=== PATIENT | male | born 1965 | race Two or more races ===

== ENCOUNTER 2017-09-20 17:10 | Inpatient (IN) | payer MEDICARE ==
[~2017-09-20] VITALS: Ht 167.6 cm; Wt 91.6 kg
--- NOTE | 2017-09-20 17:30 | NUR ---
PT WAS [facility] FROM HOME FOR PSYCH EVAL. PT IS IN 5150 HOLD DUE TO DANGER TO SELF. PT THINKS THAT PEOPLE ARE AFTER HIM TO KILL HIM. A/OX3, NAD VSS RR EVEN AND UNLABORED. PENDING ER MD RUIZ
[2017-09-20 17:47] LABS: BASOPHILS % (AUTO) 0.4 % (0.0-2.0); EOSINOPHILS % (AUTO) 1.7 % (0.0-6.0); HEMATOCRIT 45 % (39-51); HEMOGLOBIN 14.9 g/dL (13.5-17.5); LYMPHOCYTES # (AUTO) 2.7 /CMM (0.8-4.8); LYMPHOCYTES % (AUTO) 30.3 % (20.0-44.0); MEAN CORPUSCULAR HGB CONC 33 g/dl (31.0-36.0); MEAN CORPUSCULAR VOLUME 99 fL (80-96); MONOCYTES # (AUTO) 0.4 /CMM (0.1-1.30); MONOCYTES % (AUTO) 4.9 % (2.0-12.0); NEUTROPHILS # (AUTO) 5.6 /CMM (1.8-8.9); NEUTROPHILS % (AUTO) 62.7 % (43.0-81.0); PLATELET COUNT (AUTO) 229 /CMM (150-450); RDW COEFFICIENT OF VARIATION 12.9 (11.5-15.0); RED BLOOD CELL COUNT(AUTO) 4.52 MIL/uL (4.5-6.0); WHITE BLOOD COUNT (AUTO) 8.9 K/uL (4.3-11.0)
[2017-09-20 18:26] LABS: CALCIUM, SERUM 8.8 mg/dL (8.5-10.1); CARBON DIOXIDE 30 mmol/L (21-32); CHLORIDE 104 mmol/L (98-107); GLUCOSE 101 mg/dL (74-106); POTASSIUM 3.7 mmol/L (3.5-5.1); SODIUM SERUM 142 mmol/L (136-145); UREA NITROGEN, BLOOD 9 mg/dL (7-18)
[2017-09-20 18:32] LABS: ALANINE AMINOTRANSFERASE 19 U/L (12-78); ALCOHOL, BLOOD < 3 mg/dL (0-0); ALKALINE PHOSPHATASE 46 U/L (46-116); ASPARTATE AMINOTRANSFERASE 14 U/L (15-37); BILIRUBIN,DIRECT 0.1 mg/dL (0.0-0.2); BILIRUBIN,TOTAL 1.2 mg/dL (0.2-1.0); TOTAL PROTEIN, SERUM 7.3 g/dL (6.4-8.2)
[2017-09-20 19:30] LABS: APPEARANCE,URINE CLEAR (CLEAR); BILIRUBIN,URINE NEGATIVE (NEGATIVE); BLOOD, URINE NEGATIVE Ery/uL (NEGATIVE); COLOR,URINE YELLOW (YELLOW); KETONES,URINE TRACE (NEGATIVE); LEUKOCYTE ESTERASE ,URINE NEGATIVE (NEGATIVE); NITRITE, URINE NEGATIVE (NEGATIVE); PROTEIN,URINE NEGATIVE (NEGATIVE); UGLUCOSE NEGATIVE (NEGATIVE); UROBILINOGEN,URINE 0.2 EU/dL (0.2)
[2017-09-20 19:31] LABS: ACETAMINOPHEN 0 ug/ml (10-30); SALICYLATE 0.2 mg/dL (2.8-20.0)
[2017-09-20 19:38] LABS: BACTERIA,URINE Rare /HPF (None Seen); RBC,URINE 0-2 /HPF (0-2); SQUAMOUS EPITHELIAL CELL,UR Few /HPF (None Seen); WBC,URINE 0-2 /HPF (0-3)
--- NOTE | 2017-09-20 19:44 | NUR ---
harinder 211-1
--- NOTE | 2017-09-20 19:55 | NUR ---
report called to harinder valladares. will transport pt to room 211-1.
[2017-09-20 20:50] VITALS: BP 143/90
--- NOTE | 2017-09-20 20:50 | NUR ---
GPS ADMISSION NOTE, RECEIVED PATIENT FROM HOME / E.R. PATIENT ARRIVED ON THIS UNIT AT 2049 VIA WHEELCHAIR WITH 1 CYLINDER GRINDER ESCORT. PATIENT ADMITTED ON A 5150 HOLD FOR DTS. PER HOLD PATIENT BELIEVES THAT PEOPLE ARE AFTER HIM AND ARE TRYING TO KILL HIM. PATIENT HAS BEEN CRYING, ACTING BIZARRE, AND CALLED THE [employer] TO REPORT THAT PEOPLE ARE AFTER HIM. PATIENT HAS BEEN OFF HIS MEDICATIONS FOR 4-5 MONTHS AND HAS NOT BEEN SLEEPING. PATIENT UNABLE TO CONTRACT FOR SAFETY AT THIS TIME. THE 5150 WAS REVIEWED AND THE DOCUMENTATION IN THE 5150 HOLD APPEARS TO REFLECT THE PRESENTATION OF THE PATIENT. UPON FACE TO FACE ASSESSMENT PATIENT IS CURRENTLY LYING IN BED AWAKE, HAS NO S/S OR COMPLAINTS OF PAIN AT THIS TIME. PATIENT IS DISPLAYING NO S/S OF APPARENT DISTRESS. PATIENT BREATHING IS UNLABORED WITH EQUAL RISE AND FALL OF THE CHEST. PATIENT IS ALERT AND ORIENTATED X 4 ON ROOM AIR. PATIENT ASSISTED WITH TURING AND REPOSITIONING Q2HR AND PRN FOR COMFORT AND CIRCULATION. PATIENT HAS NO NEEDS AT THIS TIME. PATIENT IS NOTED TO BEING WITHDRAWN, DEPRESSED, DISHEVELED, DISORGANIZED, COOPERATIVE, AND NEEDS REDIRECTION. PATIENT IS UNDER THE PSYCHIATRIC CARE OF DR. TORREZ AND THE MEDICAL CARE OF DR RUBALCAVA. PATIENT BELONGINGS WERE INVENTORIED AND CHECKED FOR CONTRABAND. ALL CONTRABAND REMOVED AND STORED IN PATIENT HALLWAY LOCKER. PATIENT ADVANCED DIRECTIVES PREFERENCE, IMMUNIZATIONS QUESTIONER, NECESSARY PAPERWORK AND, SKIN ASSESSMENT COMPLETED. PATIENT ORIENTATED TO ROOM, FLOOR, AND STAFF WITH ALL QUESTIONS ANSWERED. PATIENT EDUCATED ON THE USE OF THE CALL GOMEZ. PATIENT BED SIDE RAILS ARE UP X 2 FOR SAFETY. PATIENT BED IS LOCKED, LOW AND I WILL CONTINUE TO MONITOR THIS PATIENT Q 15 MIN WITH THE HELP OF STAFF TO MAINTAIN SAFETY.
[2017-09-20] MEDS ORDERED: LORAZEPAM 0.5 MG TABLET PO PRN ×2 (21:30→22:00)
[2017-09-20] MEDS ORDERED: ACETAMINOPHEN 325 MG TABLET PO PRN (21:30)
[2017-09-20] MEDS ORDERED: MAGNESIUM HYDROXIDE 30 ML UDC PO PRN (21:30)
[2017-09-20] MEDS ORDERED: MAG HYDROX/AL HYDROX/SIMETH 30 ML UDC PO PRN (21:30)
[2017-09-20] MEDS ORDERED: TEMAZEPAM 7.5 MG CAPSULE PO PRN (22:00)
[2017-09-21] MEDS ORDERED: BREX0.25 PO ×2 (02:01→07:32)
[2017-09-21] MEDS: TEMAZEPAM 7.5 MG CAPSULE PO PRN (02:13)
--- NOTE | 2017-09-21 02:13 | NUR ---
GPS RN NOTE, PATIENT HAS A COMPLAINT OF NOT BEING ABLE TO SLEEP AND IS REQUESTING RESTORIL AT THIS TIME. PATIENT VITAL SIGNS ARE STABLE. GAVE RESTORIL 7.5 MG PO HS ORDERED. WILL REASSESS FOR INSOMNIA AND I WILL CONTINUE TO MONITOR THIS PATIENT.
[2017-09-21 06:48] LABS: CREATININE 0.9 mg/dL (0.6-1.3)
[2017-09-21 06:55] LABS: CHOLESTEROL 160 mg/dL (<200); HDL CHOLESTEROL 57 mg/dL (40-60); LDL 92 mg/dL (0-99); TRIGLYCERIDES 61 mg/dL (30-150)
[2017-09-21 08:00] VITALS: BP 135/77
[2017-09-21 16:00] VITALS: BP 152/95
[2017-09-21 20:14] VITALS: BP 120/78
[2017-09-21] MEDS: BENZTROPINE MESYLATE (1 MG) 1 MG TABLET PO SCH (21:18)
[2017-09-21] MEDS: ARIPIPRAZOLE 5 MG TABLET PO SCH (21:18)
--- NOTE | 2017-09-22 06:10 | NUR ---
GPS RN NOTES PT. CONCERN ABOUT COGENTIN ,PT. DOESN'T WANT TAKE COGENTIN , PT STATED I DID NOT CONSENT FOR COGENTIN , DR. GALLEGOS MADE AWARE , PER DR GALLEGOS NO NEEDS CONSENT , EXPLAIN TO PATIENT, BUT PT. STILL CONCERN .
[2017-09-22 08:00] VITALS: BP 122/81
[2017-09-22] MEDS: BENZTROPINE MESYLATE (1 MG) 1 MG TABLET PO SCH ×2 (09:00→21:00)
[2017-09-22] MEDS: ARIPIPRAZOLE 5 MG TABLET PO SCH ×2 (09:02→21:17)
--- NOTE | 2017-09-22 09:34 | NUR ---
GPS/RN-NOTES PATIENT STRONGLY REFUSED COGENTIN 1MG . STATED" I NEED TO TALK TO THE PSYCHIATRIST BECAUSE I DID NOT GIVE ANY CONSENT TO HAVE THE COGENTIN". WILL F/U WITH .
--- NOTE | 2017-09-22 11:04 | NUR ---
INITIAL DISCHARGE PLAN: Pt will de discharged back home with his mother to [id number] [place] [address] . OPAL will help form a safe and proper discharge home in collaboration with .
--- NOTE | 2017-09-22 13:21 | NUR ---
GPA/RN-NOTES DR. TORREZ SEEN THE PATIENT AND MADE AWARE OF PATIENT REFUSAL OF THE COGENTIN.
--- NOTE | 2017-09-22 14:38 | NUR ---
SW spoke with pts sister Betty Thomas [phone] who confirmed pt will be returning home to [address] [facility] [address] and that pts mother will be picking pt up.
[2017-09-22 16:00] VITALS: BP 143/97
[2017-09-22 20:08] VITALS: BP 139/66
--- NOTE | 2017-09-22 22:51 | NUR ---
GPS RN NOTES PT. REFUSED NIGHT MEDS ROBERTO , EXPLIANE RISKS AND BENEFITS, STILL REFUSED.
[2017-09-23 08:00] VITALS: BP 119/76
[2017-09-23] MEDS: ARIPIPRAZOLE 5 MG TABLET PO SCH ×2 (08:40→21:42)
[2017-09-23] MEDS: BENZTROPINE MESYLATE (1 MG) 1 MG TABLET PO SCH ×2 (08:41→21:00)
[2017-09-23 16:07] VITALS: BP 118/77
[2017-09-23 20:00] VITALS: BP 123/78
--- NOTE | 2017-09-23 21:30 | NUR ---
GPS RN NOTES PT. REFUSED COGENTIN MEDS , EXPLAIN RISKS AND BENEFITS, PT STILL REFUSED.
[2017-09-23] MEDS: TEMAZEPAM 7.5 MG CAPSULE PO PRN (21:43)
[2017-09-24 08:21] VITALS: BP 139/83
[2017-09-24] MEDS: BENZTROPINE MESYLATE (1 MG) 1 MG TABLET PO SCH ×2 (08:32→21:00)
[2017-09-24] MEDS: ARIPIPRAZOLE 5 MG TABLET PO SCH ×2 (08:33→21:50)
[2017-09-24 16:19] VITALS: BP 139/97
[2017-09-24 20:00] VITALS: BP 120/66
--- NOTE | 2017-09-24 21:45 | NUR ---
GPS RN NOTES PT. REFUSED COGENTIN MEDS , EXPLAIN RISKS AND BENEFITS, PT STILL REFUSED.
[2017-09-24] MEDS: TEMAZEPAM 7.5 MG CAPSULE PO PRN (21:50)
[2017-09-25 08:00] VITALS: BP 128/84
[2017-09-25] MEDS: ARIPIPRAZOLE 5 MG TABLET PO SCH ×2 (08:19→21:42)
[2017-09-25] MEDS: BENZTROPINE MESYLATE (1 MG) 1 MG TABLET PO SCH ×2 (08:20→21:00)
[2017-09-25 16:05] VITALS: BP 118/79
[2017-09-25 20:00] VITALS: BP 116/77
[2017-09-26] MEDS: BENZTROPINE MESYLATE (1 MG) 1 MG TABLET PO SCH ×2 (09:00→21:00)
[2017-09-26 09:11] VITALS: BP 130/54
[2017-09-26 15:52] VITALS: BP_SYST 61
[2017-09-26 20:02] VITALS: BP 124/82
[2017-09-26] MEDS: ARIPIPRAZOLE 5 MG TABLET PO SCH (21:15)
[2017-09-26] MEDS: TEMAZEPAM 7.5 MG CAPSULE PO PRN (22:05)
[2017-09-27 08:00] VITALS: BP 128/88
[2017-09-27] MEDS: BENZTROPINE MESYLATE (1 MG) 1 MG TABLET PO SCH ×3 (09:00→21:00)
[2017-09-27 16:00] VITALS: BP 130/91
[2017-09-27 20:16] VITALS: BP 117/79
[2017-09-27] MEDS: ARIPIPRAZOLE 5 MG TABLET PO SCH (21:09)
--- NOTE | 2017-09-27 21:18 | NUR ---
GPS-RN PATIENT REFUSED COGENTIN, OFFERED X3, EXPLAINED RISKS AND BENEFITS BUT PATIENT STILL REFUSED.
[2017-09-28 08:03] VITALS: BP 119/81
[2017-09-28] MEDS: BENZTROPINE MESYLATE (1 MG) 1 MG TABLET PO SCH (08:56)
--- NOTE | 2017-09-28 09:45 | NUR ---
SENIOR MOBILE WEB DEVELOPER NOTE :PATIENT ALERT ,VERBALLY RESPONSIVE ,ORIENTED X3 ,AMBULATORY AND SELF CARE DENIES SUICIDAL IDEATION ,DENIES HOMICIDAL IDEATION,DENIES AUDITORY VISUAL HALLUCINATION .NO C/O PAIN ,VS STABLE .ALL BELONGINGS RETURNED TO PATIENT ,VS STABLE . AND CALLED BACK WITH DISCHARGE ORDER ,PRESCRIPTION GIVEN TO PATIENT ALL DISCHARGE INSTRUCTION GIVEN TO PATIENT ,ABLE TO VERBALIZE UNDERSTANDING .PATIENT DISCHARGE WITH NEPHEW WITH PRIVATE CAR.
--- NOTE | 2017-09-28 15:54 | NUR ---
Discharge Note: Patient will discharge home, [address] [facility] [address] via private transportation at 10:00 am. Pts nephew, Tariq Garza will pick pt up. Pts transportation was confirmed with his sister, Betty . Pt and pts family are in agreement with discharge plan. pt was provided with the following referrals: Psychiatrist, 1) [facility], [address] [facility] [address]; , 2) James Recinos, [address] [facility] [address]; and Chocolate Temperer, Dr. Redd Alcocer, [address] [facility] [address]; .
== END 2017-09-28 10:45 | disposition home or self-care (01) | DRG 885 ==
LOC: ER 17:17 → GPS 19:57
PROVIDERS: ADMIT Psychiatry & Neurology Psychosomatic Medicine; ATTEND Psychiatry & Neurology Psychosomatic Medicine
DX: F20.0 Paranoid schizophrenia (principal); F32.9 Major depressive disorder, single episode, unspecified; G89.29 Other chronic pain; M48.02 Spinal stenosis, cervical region; Z98.1 Arthrodesis status; V89.2XXS Person injured in unspecified motor-vehicle accident, traffic, sequela; Z98.890 Other specified postprocedural states; Z91.19 Patient's noncompliance with other medical treatment and regimen
CPT/HCPCS: 36415; 80048-TC; 80061-TC; 80076-TC; 80305; 81000-TC; 82565-TC; 85025-TC; 87081-TC; A4606; G0480; Z7610